=== PATIENT | male | born 1975 | race Caucasian/White ===

== ENCOUNTER 2024-02-13 12:17 | Inpatient (IN) | payer MEDICAID, OTHER ==
[~2024-02-13] VITALS: Ht 180.3 cm; Wt 113.4 kg
[2024-02-13] MEDS ORDERED: GLIP5TAB16 PO (12:34)
[2024-02-13] MEDS ORDERED: EMPA10TA3 PO (12:34)
[2024-02-13] MEDS ORDERED: PALI156D IM (12:34)
[2024-02-13] MEDS ORDERED: METF-1211 PO (12:34)
[2024-02-13] MEDS ORDERED: LISI-894 PO (12:34)
[2024-02-13] MEDS ORDERED: LEVO137T24 PO (12:34)
[2024-02-13 12:40] LABS: COVID AG,FIA SOURCE NASAL SWAB
[2024-02-13 12:55] LABS: AMPHET/METH SCREEN,URINE NEGATIVE (NEGATIVE); BARBITURATE SCREEN, URINE NEGATIVE (NEGATIVE); BENZODIAZEPINES SCREEN,URINE POSITIVE (NEGATIVE); CANNABINOID SCREEN,URINE NEGATIVE (NEGATIVE); COCAINE SCREEN,URINE NEGATIVE (NEGATIVE); METHADONE SCREEN, URINE NEGATIVE (NEGATIVE); OPIATE SCREEN,URINE NEGATIVE (NEGATIVE); PHENCYCLIDINE SCREEN,URINE NEGATIVE (NEGATIVE)
[2024-02-13 12:59] LABS: ALCOHOL, URINE DRUG SCREEN NEGATIVE (NEGATIVE)
[2024-02-13 13:01] LABS: BASOPHILS % (AUTO) 0.7 % (0.0-2.0); EOSINOPHILS % (AUTO) 0.4 % (1.0-6.0); HEMATOCRIT 41.1 % (41-53); HEMOGLOBIN 14.3 g/dL (13.5-17.5); LYMPHOCYTES # (AUTO) 1.6 K/uL (1.0-4.8); LYMPHOCYTES % (AUTO) 14.9 % (22.0-44.0); MEAN CORPUSCULAR HEMOGLOBIN 31.5 pg (26.0-34.0); MEAN CORPUSCULAR HGB CONC 34.9 G/dL (31.0-37.0); MEAN CORPUSCULAR VOLUME 90 fL (80-100); MONOCYTES # (AUTO) 0.7 K/uL (0.1-1.0); MONOCYTES % (AUTO) 6.1 % (2.0-9.0); NEUTROPHILS # (AUTO) 8.6 K/uL (1.8-7.7); NEUTROPHILS % (AUTO) 77.9 % (40.0-70.0); PLATELET COUNT (AUTO) 390 K/uL (150-450); RED BLOOD CELL COUNT(AUTO) 4.54 MIL/uL (4.50-5.90); RED CELL DISTRIBUTION WIDTH 15.1 % (11.5-14.5)
[2024-02-13 13:04] LABS: ANION GAP 12 mmol/L (8-16); CALCIUM, TOTAL 9.3 mg/dL (8.8-10.5); CARBON DIOXIDE 25 mmol/L (22-29); CHLORIDE 99 mmol/L (98-107); CREATININE 0.89 mg/dL (0.60-1.30); GLOMERULAR FILTR. RATE CALC > 60 mL/min (>60); GLUCOSE,RANDOM 125 mg/dL (70-110); SODIUM SERUM 136 mmol/L (136-145); UREA NITROGEN, BLOOD 10 mg/dL (7-18)
[2024-02-13 13:12] LABS: SARS-COV2 (COVID) ANTIGEN,FIA Negative (Negative)
[2024-02-13] MEDS: HALOPERIDOL 5 MG TABLET PO ONE (13:13)
[2024-02-13] MEDS: LORazepam 2 MG TABLET PO ONE (13:13)
[2024-02-13] MEDS: DiphenhydrAMINE HCL 25 MG CAPSULE PO ONE (13:14)
[2024-02-13 13:24] LABS: ALCOHOL, BLOOD (SERUM) < 3 mg/dL (0-10)
[2024-02-13] MEDS ORDERED: MAG HYDROX/ALUMINUM HYD/SIMETH ES 30 ML SUSPENSION UDCUP PO PRN (15:15)
[2024-02-13] MEDS ORDERED: MAGNESIUM HYDROXIDE SUSPENSION 30 ML UDCUP PO PRN (15:15)
[2024-02-13 16:14] VITALS: O2SAT 97
[2024-02-13 17:23] VITALS: BP 134/82; PULSE 75; RESP 18; TEMP 97.5; O2SAT 98
[2024-02-13] MEDS: LORazepam 2 MG TABLET PO PRN (18:41)
[2024-02-13] MEDS: HALOPERIDOL 5 MG TABLET PO PRN (18:42)
[2024-02-13] MEDS ORDERED: PNEUMOCOCCAL VACCINE POLYVALENT 0.5 ML SYRINGE [PPSV23] IM. ONE (18:45)
[2024-02-13] MEDS: ZOLPIDEM TARTRATE 10 MG TABLET PO PRN (20:20)
[2024-02-13] MEDS ORDERED: GLUCAGON,HUMAN RECOMBINANT 1 MG VIAL IM PRN (20:30)
[2024-02-13 20:45] VITALS: BP 134/82; PULSE 96; RESP 20; TEMP 97.8; O2SAT 99
[2024-02-13 21:06] LABS: GLUCOMETER DEV NAME(LOC) BV2S.; GLUCOSE,POINT OF CARE 114 MG/DL (70-110)
[2024-02-14] MEDS: MetFORMIN HCL 500 MG TABLET PO SCH (06:47)
[2024-02-14] MEDS: LEVOTHYROXINE SODIUM 137 MCG TABLET PO SCH (06:47)
[2024-02-14 07:16] LABS: GLUCOMETER DEV NAME(LOC) BV2S.; GLUCOSE,POINT OF CARE 127 MG/DL (70-110)
[2024-02-14 08:20] VITALS: BP 109/68; PULSE 91; RESP 17; TEMP 96.8; O2SAT 97
[2024-02-14] MEDS: LISINOPRIL 20 MG TABLET PO SCH (10:38)
[2024-02-14 12:21] LABS: GLUCOMETER DEV NAME(LOC) BV2S.; GLUCOSE,POINT OF CARE 140 MG/DL (70-110)
[2024-02-14] MEDS: ARIPiprazole 10 MG TABLET PO SCH (12:53)
[2024-02-14 18:01] LABS: GLUCOMETER DEV NAME(LOC) BV2S.; GLUCOSE,POINT OF CARE 150 MG/DL (70-110)
[2024-02-14 18:01] LABS: GLUCOMETER DEV NAME(LOC) BV2S.; GLUCOSE,POINT OF CARE 136 MG/DL (70-110)
[2024-02-14] MEDS: INSULIN LISPRO 100 UNITS/ML SQ PRN (21:13)
[2024-02-14 21:30] VITALS: BP 105/66; PULSE 76; RESP 17; TEMP 97.5; O2SAT 98
[2024-02-15 06:31] LABS: GLUCOMETER DEV NAME(LOC) BV2S.; GLUCOSE,POINT OF CARE 186 MG/DL (70-110)
[2024-02-15 06:31] LABS: GLUCOMETER DEV NAME(LOC) BV2S.; GLUCOSE,POINT OF CARE 125 MG/DL (70-110)
[2024-02-15 08:17] VITALS: BP 107/66; PULSE 91; RESP 18; TEMP 96.6; O2SAT 97
[2024-02-15] MEDS ORDERED: HydrOXYzine PAMOATE 50 MG CAPSULE PO PRN (11:00)
[2024-02-15 12:35] LABS: GLUCOMETER DEV NAME(LOC) BV2S.; GLUCOSE,POINT OF CARE 120 MG/DL (70-110)
[2024-02-15] MEDS: BENZTROPINE MESYLATE 1 MG TABLET PO SCH (16:49)
[2024-02-15 18:25] LABS: GLUCOMETER DEV NAME(LOC) BV2S.; GLUCOSE,POINT OF CARE 120 MG/DL (70-110)
[2024-02-15 21:26] LABS: GLUCOMETER DEV NAME(LOC) BV2S.; GLUCOSE,POINT OF CARE 109 MG/DL (70-110)
[2024-02-15 21:59] VITALS: BP 102/55; PULSE 75; RESP 16; TEMP 96; O2SAT 98
[2024-02-16] MEDS: FLUoxetine HCL 20 MG CAPSULE PO SCH (08:48)
[2024-02-16 08:56] VITALS: BP 128/75; PULSE 94; RESP 17; TEMP 98; O2SAT 97
[2024-02-16 10:36] LABS: GLUCOMETER DEV NAME(LOC) BV2S.; GLUCOSE,POINT OF CARE 117 MG/DL (70-110)
[2024-02-16 11:55] LABS: GLUCOMETER DEV NAME(LOC) BV2S.; GLUCOSE,POINT OF CARE 113 MG/DL (70-110)
[2024-02-16 17:45] VITALS: RESP 18; O2SAT 97
[2024-02-16] MEDS: ACETAMINOPHEN 325 MG TABLET PO PRN (17:45)
[2024-02-16 18:45] VITALS: RESP 17; O2SAT 97
[2024-02-16 20:32] VITALS: BP 109/69; PULSE 94; RESP 16; TEMP 96.2; O2SAT 97
[2024-02-16 21:31] LABS: GLUCOMETER DEV NAME(LOC) BV2S.; GLUCOSE,POINT OF CARE 112 MG/DL (70-110)
[2024-02-17] VITALS (9 sets, daily range): BP systolic 107–144; BP diastolic 65–82; PULSE 78–107; RESP 16–18; TEMP 97–98; O2SAT 96–99
[2024-02-17 06:51] LABS: GLUCOMETER DEV NAME(LOC) BV2S.; GLUCOSE,POINT OF CARE 138 MG/DL (70-110)
[2024-02-17 13:25] LABS: GLUCOMETER DEV NAME(LOC) BV2S.; GLUCOSE,POINT OF CARE 120 MG/DL (70-110)
[2024-02-17 17:25] LABS: GLUCOMETER DEV NAME(LOC) BV2S.; GLUCOSE,POINT OF CARE 127 MG/DL (70-110)
[2024-02-17 21:21] LABS: GLUCOMETER DEV NAME(LOC) BV2S.; GLUCOSE,POINT OF CARE 113 MG/DL (70-110)
[2024-02-18 06:26] LABS: GLUCOMETER DEV NAME(LOC) BV2S.; GLUCOSE,POINT OF CARE 119 MG/DL (70-110)
[2024-02-18 08:08] VITALS: BP 138/94; PULSE 66; RESP 18; TEMP 97.7; O2SAT 100
[2024-02-18 11:50] LABS: GLUCOMETER DEV NAME(LOC) BV2S.; GLUCOSE,POINT OF CARE 132 MG/DL (70-110)
[2024-02-18] MEDS: LOPERAMIDE HCL 2 MG CAPSULE PO PRN (14:30)
[2024-02-18 17:16] LABS: GLUCOMETER DEV NAME(LOC) BV2S.; GLUCOSE,POINT OF CARE 107 MG/DL (70-110)
[2024-02-19 01:56] LABS: GLUCOMETER DEV NAME(LOC) BV2S.; GLUCOSE,POINT OF CARE 132 MG/DL (70-110)
[2024-02-19 06:51] LABS: GLUCOMETER DEV NAME(LOC) BV2S.; GLUCOSE,POINT OF CARE 139 MG/DL (70-110)
[2024-02-19 08:12] VITALS: BP 129/81; PULSE 100; RESP 17; TEMP 96.8; O2SAT 99
[2024-03-07] MEDS ORDERED: PALIPERIDONE PALMITATE 234 MG/1.5 ML SYRINGE IM SCH (09:00)
== END 2024-02-19 15:00 | disposition short-term general hospital (02) | DRG 750 ==
LOC: EMS 12:17 → B2S 15:09
PROVIDERS: ADMIT Psychiatry & Neurology Psychiatry; ATTEND Psychiatry & Neurology Psychiatry
PROC: GZHZZZZ Group Psychotherapy (ICD-10-PCS; principal; 2024-02-14)
PROC: GZ52ZZZ Individual Psychotherapy, Cognitive (ICD-10-PCS; 2024-02-14)
DX: F25.1 Schizoaffective disorder, depressive type (principal); E11.9 Type 2 diabetes mellitus without complications; R45.851 Suicidal ideations; E03.9 Hypothyroidism, unspecified; Z20.822 Contact with and (suspected) exposure to COVID-19; I10 Essential (primary) hypertension; F41.9 Anxiety disorder, unspecified
CPT/HCPCS: 72100; 80048; 80307; 82962; 85025; 93005; 99285; G0480

== ENCOUNTER 2024-02-19 11:09 | Inpatient (IN) | payer MEDICAID, OTHER ==
[~2024-02-19] VITALS: Ht 180.3 cm; Wt 116.4 kg
[~2024-02-19 11:09] MED LIST: EMPA10TA3 PO; GLIP5TAB16 PO; LEVO137T24 PO; LISI-894 PO; METF-1211 PO; PALI156D IM
[2024-02-19 11:57] LABS: BASOPHILS % (AUTO) 0.7 % (0.0-2.0); EOSINOPHILS % (AUTO) 1.5 % (1.0-6.0); HEMATOCRIT 42.5 % (41-53); HEMOGLOBIN 14.6 g/dL (13.5-17.5); LYMPHOCYTES # (AUTO) 1.6 K/uL (1.0-4.8); LYMPHOCYTES % (AUTO) 13.4 % (22.0-44.0); MEAN CORPUSCULAR HEMOGLOBIN 31.3 pg (26.0-34.0); MEAN CORPUSCULAR HGB CONC 34.2 G/dL (31.0-37.0); MEAN CORPUSCULAR VOLUME 92 fL (80-100); MONOCYTES # (AUTO) 0.9 K/uL (0.1-1.0); MONOCYTES % (AUTO) 7.7 % (2.0-9.0); NEUTROPHILS # (AUTO) 9.2 K/uL (1.8-7.7); NEUTROPHILS % (AUTO) 76.7 % (40.0-70.0); PLATELET COUNT (AUTO) 337 K/uL (150-450); RED BLOOD CELL COUNT(AUTO) 4.65 MIL/uL (4.50-5.90); RED CELL DISTRIBUTION WIDTH 14.4 % (11.5-14.5)
[2024-02-19 12:10] LABS: ANION GAP 8 mmol/L (8-16); CALCIUM, TOTAL 9.5 mg/dL (8.8-10.5); CARBON DIOXIDE 26 mmol/L (22-29); CHLORIDE 99 mmol/L (98-107); CREATININE 0.78 mg/dL (0.60-1.30); GLOMERULAR FILTR. RATE CALC > 60 mL/min (>60); GLUCOSE,RANDOM 152 mg/dL (70-110); SODIUM SERUM 133 mmol/L (136-145); UREA NITROGEN, BLOOD 13 mg/dL (7-18)
[2024-02-19] MEDS ORDERED: HYDROCODONE/ACETAMINOPHEN 5-325 MG TABLET PO PRN (15:30)
[2024-02-19] MEDS ORDERED: BISACODYL 10 MG RECTAL RECTAL SUPPOSITORY PR PRN (15:30)
[2024-02-19] MEDS ORDERED: MAGNESIUM HYDROXIDE SUSPENSION 30 ML UDCUP PO PRN (15:30)
[2024-02-19] MEDS ORDERED: ZOLPIDEM TARTRATE 5 MG TABLET PO PRN (15:30)
[2024-02-19] MEDS ORDERED: ACETAMINOPHEN 325 MG TABLET PO PRN (15:30)
[2024-02-19] MEDS ORDERED: SODIUM CHLORIDE 0.9% 1,000 ML IV ONE (15:30)
[2024-02-19] MEDS ORDERED: ONDANSETRON HCL 4 MG/2 ML VIAL IVP PRN (15:30)
[2024-02-19] MEDS ORDERED: MORPHINE SULFATE 2 MG/ML SYRINGE IVP PRN (15:30)
[2024-02-19] MEDS: HEPARIN SODIUM,PORCINE 5,000 UNITS/ML VIAL SQ SCH (16:00)
[2024-02-19] MEDS: SODIUM CHLORIDE 0.9% 1,000 ML IV ONE (16:04)
[2024-02-19] MEDS: MetroNIDAZOLE 500 MG TABLET PO SCH (16:08)
[2024-02-19 18:11] VITALS: BP 119/71; PULSE 78; RESP 20; TEMP 98.6; O2SAT 95
[2024-02-19] MEDS: DOCUSATE SODIUM 100 MG CAPSULE PO SCH (20:39)
[2024-02-19 20:43] VITALS: BP 114/62; PULSE 66; RESP 18; TEMP 98.1; O2SAT 94
[2024-02-20 03:41] LABS: C.DIFF GDH ANTIGEN, Stool Negative (Negative); C.DIFF TOXINS A&B, Stool Negative (Negative)
[2024-02-20 05:23] VITALS: BP 110/68; PULSE 70; RESP 18; TEMP 97.7; O2SAT 95
[2024-02-20] MEDS: LEVOTHYROXINE SODIUM 137 MCG TABLET PO SCH (06:24)
[2024-02-20 07:35] LABS: GLUCOMETER DEV NAME(LOC) 6N.2B; GLUCOSE,POINT OF CARE 118 MG/DL (70-110)
[2024-02-20] MEDS: PANTOPRAZOLE SODIUM 40 MG DR TABLET PO SCH (08:03)
[2024-02-20] MEDS: LISINOPRIL 20 MG TABLET PO SCH (08:03)
[2024-02-20 08:06] LABS: BASOPHILS % (AUTO) 0.5 % (0.0-2.0); EOSINOPHILS % (AUTO) 2.9 % (1.0-6.0); HEMATOCRIT 41.6 % (41-53); HEMOGLOBIN 14.5 g/dL (13.5-17.5); LYMPHOCYTES # (AUTO) 1.7 K/uL (1.0-4.8); LYMPHOCYTES % (AUTO) 23.4 % (22.0-44.0); MEAN CORPUSCULAR VOLUME 92 fL (80-100); MONOCYTES # (AUTO) 0.5 K/uL (0.1-1.0); MONOCYTES % (AUTO) 7.3 % (2.0-9.0); NEUTROPHILS # (AUTO) 4.7 K/uL (1.8-7.7); NEUTROPHILS % (AUTO) 65.9 % (40.0-70.0); PLATELET COUNT (AUTO) 305 K/uL (150-450); RED BLOOD CELL COUNT(AUTO) 4.54 MIL/uL (4.50-5.90); RED CELL DISTRIBUTION WIDTH 14.7 % (11.5-14.5); WHITE BLOOD COUNT (AUTO) 7.1 K/uL (4.5-11.0)
[2024-02-20 08:13] LABS: ANION GAP 5 mmol/L (8-16); CALCIUM, TOTAL 9.1 mg/dL (8.8-10.5); CARBON DIOXIDE 29 mmol/L (22-29); CHLORIDE 101 mmol/L (98-107); CREATININE 0.76 mg/dL (0.60-1.30); GLOMERULAR FILTR. RATE CALC > 60 mL/min (>60); GLUCOSE,RANDOM 122 mg/dL (70-110); POTASSIUM 4.1 mmol/L (3.5-5.1); SODIUM SERUM 135 mmol/L (136-145); UREA NITROGEN, BLOOD 9 mg/dL (7-18)
[2024-02-20 16:04] VITALS: BP 129/87; PULSE 80; RESP 17; TEMP 98.7; O2SAT 98
[2024-02-20 20:47] VITALS: BP 110/67; PULSE 71; RESP 18; TEMP 98.2; O2SAT 93
[2024-02-21 04:58] VITALS: BP 119/73; PULSE 70; RESP 18; TEMP 97.7; O2SAT 96
[2024-02-21 08:15] LABS: BASOPHILS % (AUTO) 0.5 % (0.0-2.0); EOSINOPHILS % (AUTO) 2.4 % (1.0-6.0); HEMATOCRIT 39.1 % (41-53); HEMOGLOBIN 13.8 g/dL (13.5-17.5); LYMPHOCYTES # (AUTO) 1.6 K/uL (1.0-4.8); LYMPHOCYTES % (AUTO) 24.1 % (22.0-44.0); MEAN CORPUSCULAR HEMOGLOBIN 31.9 pg (26.0-34.0); MEAN CORPUSCULAR HGB CONC 35.3 G/dL (31.0-37.0); MEAN CORPUSCULAR VOLUME 91 fL (80-100); MONOCYTES # (AUTO) 0.5 K/uL (0.1-1.0); MONOCYTES % (AUTO) 7.3 % (2.0-9.0); NEUTROPHILS # (AUTO) 4.4 K/uL (1.8-7.7); NEUTROPHILS % (AUTO) 65.7 % (40.0-70.0); PLATELET COUNT (AUTO) 275 K/uL (150-450); RED BLOOD CELL COUNT(AUTO) 4.32 MIL/uL (4.50-5.90); RED CELL DISTRIBUTION WIDTH 14.4 % (11.5-14.5); WHITE BLOOD COUNT (AUTO) 6.8 K/uL (4.5-11.0)
[2024-02-21 08:17] LABS: ANION GAP 7 mmol/L (8-16); CALCIUM, TOTAL 8.4 mg/dL (8.8-10.5); CARBON DIOXIDE 29 mmol/L (22-29); CHLORIDE 102 mmol/L (98-107); GLOMERULAR FILTR. RATE CALC > 60 mL/min (>60); GLUCOSE,RANDOM 123 mg/dL (70-110); POTASSIUM 4.1 mmol/L (3.5-5.1); SODIUM SERUM 138 mmol/L (136-145); UREA NITROGEN, BLOOD 10 mg/dL (7-18)
[2024-02-21] MEDS: ARIPiprazole 10 MG TABLET PO SCH (08:33)
[2024-02-21] MEDS: FLUoxetine HCL 20 MG CAPSULE PO SCH (08:33)
[2024-02-21 09:03] VITALS: BP 121/74; PULSE 81; RESP 18; TEMP 98.1; O2SAT 98
[2024-02-21] MEDS ORDERED: METR500 PO (14:50)
[2024-02-21] MEDS ORDERED: FLUO-418 PO (14:50)
[2024-02-21 15:38] VITALS: BP 101/67; PULSE 78; RESP 18; TEMP 97.7; O2SAT 97
== END 2024-02-21 17:07 | disposition home or self-care (01) | DRG 254 ==
LOC: EMS 11:09 → EDH 15:36 → 4E 17:55
PROVIDERS: ADMIT Internal Medicine; ATTEND Internal Medicine
DX: E73.9 Lactose intolerance, unspecified (principal); F25.1 Schizoaffective disorder, depressive type; E86.0 Dehydration; R10.9 Unspecified abdominal pain; E11.9 Type 2 diabetes mellitus without complications; I10 Essential (primary) hypertension; E78.5 Hyperlipidemia, unspecified; E03.9 Hypothyroidism, unspecified; F41.9 Anxiety disorder, unspecified; Z79.84 Long term (current) use of oral hypoglycemic drugs; Z79.899 Other long term (current) drug therapy
CPT/HCPCS: 74176; 80048; 82962; 85025; 87045; 87206; 87324; 87449; 99285; G0378; J1644

== ENCOUNTER 2024-04-10 11:54 | Emergency (ER) | payer MEDICAID, OTHER ==
[~2024-04-10] VITALS: Ht 180.3 cm; Wt 116.4 kg
[~2024-04-10 11:54] MED LIST changes: +FLUO-418 PO; +METR500 PO
[2024-04-10 12:59] VITALS: BP 100/62; PULSE 84; RESP 18; TEMP 97.8; O2SAT 95
[2024-04-12] MEDS ORDERED: INSNPH SQ (13:11)
[2024-04-12] MEDS ORDERED: BENZ-247 PO (13:11)
[2024-04-12] MEDS ORDERED: ALLO100T PO (13:11)
[2024-04-12] MEDS ORDERED: INSREG SQ (13:11)
[2024-04-12] MEDS ORDERED: ATOR40TA71 PO (13:11)
[2024-04-12] MEDS ORDERED: PALI234D IM (13:11)
[2024-04-12] MEDS ORDERED: PIOG15TA66 PO (13:11)
[2024-04-12] MEDS ORDERED: BUSP10TA23 PO (13:11)
[2024-04-12] MEDS ORDERED: TRAZ150T79 PO (13:11)
[2024-04-12] MEDS ORDERED: EMPA25TA3 PO (13:11)
[2024-04-12] MEDS ORDERED: GLIP-383 PO (13:11)
[2024-04-12] MEDS ORDERED: HYDR-4584 PO (13:11)
== END 2024-04-10 17:30 | disposition home or self-care (01) ==
LOC: EMS 11:59
DX: K59.00 Constipation, unspecified (principal); F20.9 Schizophrenia, unspecified; E11.9 Type 2 diabetes mellitus without complications; E03.9 Hypothyroidism, unspecified; I10 Essential (primary) hypertension; Z90.49 Acquired absence of other specified parts of digestive tract; Z79.84 Long term (current) use of oral hypoglycemic drugs; Z79.899 Other long term (current) drug therapy
CPT/HCPCS: 74018; 99285

== ENCOUNTER 2024-08-13 05:20 | Inpatient (IN) | payer MEDICAID, OTHER ==
[~2024-08-13] VITALS: Ht 180.3 cm; Wt 108.0 kg
[~2024-08-13 05:20] MED LIST changes: -EMPA10TA3 PO; -GLIP5TAB16 PO; +HYDR50CA7 PO; -LEVO137T24 PO; +LEVO25TA9 PO; -LISI-894 PO; -METR500 PO; +OLAN10TA74 PO; -PALI156D IM; +PROP10TA73 PO; +TRAZ-257 PO
[2024-08-13 07:04] LABS: COVID AG,FIA SOURCE NPH
[2024-08-13] MEDS: DiphenhydrAMINE HCL 50 MG/ML VIAL IM ONE (07:09)
[2024-08-13] MEDS: haloperidoL LACTATE 5 MG/ML VIAL IM ONE (07:09)
[2024-08-13] MEDS: LORazepam 2 MG/ML VIAL IM ONE (07:09)
[2024-08-13 07:15] LABS: GLUCOMETER DEV NAME(LOC) ERT.7; GLUCOSE,POINT OF CARE 135 MG/DL (70-110)
[2024-08-13 07:33] LABS: SARS-COV2 (COVID) ANTIGEN,FIA Negative (Negative)
[2024-08-13 07:54] LABS: BASOPHILS % (AUTO) 0.8 % (0.0-2.0); EOSINOPHILS % (AUTO) 0.3 % (1.0-6.0); HEMATOCRIT 41.4 % (41-53); HEMOGLOBIN 14.3 g/dL (13.5-17.5); LYMPHOCYTES # (AUTO) 1.7 K/uL (1.0-4.8); LYMPHOCYTES % (AUTO) 13.6 % (22.0-44.0); MEAN CORPUSCULAR HGB CONC 34.6 G/dL (31.0-37.0); MEAN CORPUSCULAR VOLUME 90 fL (80-100); MONOCYTES # (AUTO) 0.6 K/uL (0.1-1.0); NEUTROPHILS # (AUTO) 9.9 K/uL (1.8-7.7); NEUTROPHILS % (AUTO) 80.3 % (40.0-70.0); PLATELET COUNT (AUTO) 353 K/uL (150-450); RED BLOOD CELL COUNT(AUTO) 4.62 MIL/uL (4.50-5.90); RED CELL DISTRIBUTION WIDTH 14.3 % (11.5-14.5); WHITE BLOOD COUNT (AUTO) 12.3 K/uL (4.5-11.0)
[2024-08-13 07:56] LABS: ANION GAP 12 mmol/L (8-16); CARBON DIOXIDE 24 mmol/L (22-29); CHLORIDE 102 mmol/L (98-107); CREATININE 0.91 mg/dL (0.60-1.30); GLOMERULAR FILTR. RATE CALC > 60 mL/min (>60); GLUCOSE,RANDOM 132 mg/dL (70-110); POTASSIUM 3.7 mmol/L (3.5-5.1); SODIUM SERUM 138 mmol/L (136-145); UREA NITROGEN, BLOOD 18 mg/dL (7-18)
[2024-08-13 08:07] LABS: ALCOHOL, BLOOD (SERUM) < 3 mg/dL (0-10)
[2024-08-13 08:13] LABS: THYROID STIMULATING HORMONE 20.05 uIU/mL (0.36-3.74)
[2024-08-13] MEDS ORDERED: GLIP-383 PO (11:02)
[2024-08-13] MEDS ORDERED: LATA2.5D14 OU (11:02)
[2024-08-13] MEDS ORDERED: INSREG SQ (11:02)
[2024-08-13] MEDS ORDERED: INSNPH SQ (11:02)
[2024-08-13 13:18] LABS: APPEARANCE,URINE CLEAR (CLEAR); BILIRUBIN,URINE NEGATIVE (NEGATIVE); COLOR,URINE LIGHT YELLOW (YELLOW); GLUCOSE, URINE (UA) >=1000 mg/dL (NEGATIVE); KETONES,URINE NEGATIVE (NEGATIVE); LEUKOCYTE ESTERASE ,URINE NEGATIVE (NEGATIVE); NITRATE,URINE NEGATIVE (NEGATIVE); OCCULT BLOOD,URINE NEGATIVE (NEGATIVE); PH,URINE 6.5 (5.0-8.0); PH,URINE DRUG SCREEN 6.5 (5.0-8.0); PROTEIN,URINE TRACE mg/dL (NEGATIVE); SPECIFIC GRAVITIY, URINE 1.039 (1.003-1.030); UROBILINOGEN,URINE <=1.0 mg/dL (<=1.0)
[2024-08-13] MEDS: haloperidoL 5 MG TABLET PO PRN (13:24)
[2024-08-13] MEDS: LEVOTHYROXINE SODIUM 50 MCG TABLET PO ONE (13:24)
[2024-08-13] MEDS: LORazepam 2 MG TABLET PO PRN (13:24)
[2024-08-13 13:29] LABS: BACTERIA,URINE None Seen /HPF (None Seen); RBC,URINE None Seen /HPF (0-2); WBC,URINE None Seen /HPF (0-5)
[2024-08-13 13:47] LABS: ALCOHOL, URINE DRUG SCREEN NEGATIVE (NEGATIVE); AMPHET/METH SCREEN,URINE NEGATIVE (NEGATIVE); BARBITURATE SCREEN, URINE NEGATIVE (NEGATIVE); BENZODIAZEPINES SCREEN,URINE POSITIVE (NEGATIVE); CANNABINOID SCREEN,URINE POSITIVE (NEGATIVE); COCAINE SCREEN,URINE NEGATIVE (NEGATIVE); METHADONE SCREEN, URINE NEGATIVE (NEGATIVE); OPIATE SCREEN,URINE NEGATIVE (NEGATIVE); PHENCYCLIDINE SCREEN,URINE NEGATIVE (NEGATIVE)
[2024-08-13 15:44] VITALS: O2SAT 98
[2024-08-13 18:53] VITALS: BP 139/85; PULSE 79; RESP 16; TEMP 97.8; O2SAT 97
[2024-08-13 20:39] VITALS: RESP 16
[2024-08-13] MEDS: OLANZapine 10 MG TABLET PO SCH (21:19)
[2024-08-14] MEDS ORDERED: IBUPROFEN 600 MG TABLET PO PRN (07:00)
[2024-08-14] MEDS ORDERED: PETROLATUM,WHITE 28 GM JELLY TP PRN (07:00)
[2024-08-14] MEDS ORDERED: GLUCAGON,HUMAN RECOMBINANT 1 MG VIAL IM PRN (07:00)
[2024-08-14] MEDS ORDERED: OMEPRAZOLE 20 MG CAPSULE PO PRN (07:00)
[2024-08-14] MEDS ORDERED: ACETAMINOPHEN 325 MG TABLET PO PRN (07:00)
[2024-08-14] MEDS ORDERED: CloNIDine HCL 0.1 MG TABLET PO PRN (07:00)
[2024-08-14] MEDS ORDERED: BACITRACIN 28 GM OINTMENT TP PRN (07:00)
[2024-08-14] MEDS ORDERED: DOCUSATE SODIUM 100 MG CAPSULE PO PRN (07:00)
[2024-08-14] MEDS ORDERED: MAG HYDROX/ALUMINUM HYD/SIMETH ES 30 ML SUSPENSION UDCUP PO PRN (07:00)
[2024-08-14] MEDS ORDERED: ONDANSETRON 4 MG TABLET PO PRN (07:00)
[2024-08-14] MEDS ORDERED: LOPERAMIDE HCL 2 MG CAPSULE PO PRN (07:00)
[2024-08-14] MEDS ORDERED: ALBUTEROL SULFATE HFA 90 MCG/PUFF 8 GM INHALER IH PRN (07:00)
[2024-08-14] MEDS ORDERED: MAGNESIUM HYDROXIDE SUSPENSION 30 ML UDCUP PO PRN (07:00)
[2024-08-14] MEDS: LEVOTHYROXINE SODIUM 25 MCG TABLET PO SCH (07:08)
[2024-08-14] MEDS: MetFORMIN HCL 500 MG TABLET PO SCH (07:08)
[2024-08-14] MEDS: PROPRANOLOL HCL 10 MG TABLET PO SCH (08:36)
[2024-08-14 09:12] LABS: HEMOGLOBIN A1C 6.2 % (3.8-5.6)
[2024-08-14 11:03] VITALS: BP 151/97; PULSE 93; RESP 18; TEMP 97.7; O2SAT 99
[2024-08-14 16:07] VITALS: BP 144/87; PULSE 86; RESP 18; TEMP 97.6
[2024-08-14] MEDS: GlipiZIDE ER 2.5 MG ER TABLET PO SCH (16:08)
[2024-08-14 17:26] LABS: GLUCOMETER DEV NAME(LOC) BV3S.2; GLUCOSE,POINT OF CARE 124 MG/DL (70-110)
[2024-08-14 17:26] LABS: GLUCOMETER DEV NAME(LOC) BV3S.2; GLUCOSE,POINT OF CARE 110 MG/DL (70-110)
[2024-08-14 20:17] VITALS: BP 137/96; PULSE 78; RESP 18; TEMP 97.9; O2SAT 98
[2024-08-14 20:35] LABS: GLUCOMETER DEV NAME(LOC) BV3S.2; GLUCOSE,POINT OF CARE 151 MG/DL (70-110)
[2024-08-14] MEDS: LATANOPROST 0.005% 2.5 ML OPHTHALMIC SOLUTION OU SCH (21:01)
[2024-08-14] MEDS: INSULIN LISPRO 100 UNITS/ML SQ PRN (21:31)
[2024-08-15 04:06] LABS: HEPATITIS C AB (EIA) Non Reactive (Non Reactive)
[2024-08-15 06:55] LABS: GLUCOMETER DEV NAME(LOC) BV3S.2; GLUCOSE,POINT OF CARE 96 MG/DL (70-110)
[2024-08-15 08:30] VITALS: BP 125/99; PULSE 100; RESP 16; TEMP 97; O2SAT 98
[2024-08-15 12:56] LABS: GLUCOMETER DEV NAME(LOC) BV3S.2; GLUCOSE,POINT OF CARE 79 MG/DL (70-110)
[2024-08-15 17:31] LABS: GLUCOMETER DEV NAME(LOC) BV3S.2; GLUCOSE,POINT OF CARE 145 MG/DL (70-110)
[2024-08-15 20:37] VITALS: BP 123/79; PULSE 66; RESP 16; TEMP 97.7; O2SAT 98
[2024-08-15 22:16] LABS: GLUCOMETER DEV NAME(LOC) BV3S.2; GLUCOSE,POINT OF CARE 90 MG/DL (70-110)
[2024-08-16] MEDS: LEVOTHYROXINE SODIUM 50 MCG TABLET PO SCH (06:25)
[2024-08-16 06:31] LABS: GLUCOMETER DEV NAME(LOC) BV3S.2; GLUCOSE,POINT OF CARE 105 MG/DL (70-110)
[2024-08-16 08:38] VITALS: BP 128/78; PULSE 78; RESP 18; TEMP 97.8; O2SAT 95
[2024-08-16 11:30] LABS: GLUCOMETER DEV NAME(LOC) BV3S.2; GLUCOSE,POINT OF CARE 147 MG/DL (70-110)
[2024-08-16 16:50] LABS: GLUCOMETER DEV NAME(LOC) BV3S.2; GLUCOSE,POINT OF CARE 155 MG/DL (70-110)
[2024-08-16 20:35] VITALS: BP 130/82; PULSE 74; RESP 16; TEMP 97.7; O2SAT 97
[2024-08-17 00:15] LABS: GLUCOMETER DEV NAME(LOC) BV3S.2; GLUCOSE,POINT OF CARE 104 MG/DL (70-110)
[2024-08-17 06:46] LABS: GLUCOMETER DEV NAME(LOC) BV3S.2; GLUCOSE,POINT OF CARE 95 MG/DL (70-110)
[2024-08-17 09:17] VITALS: BP 133/82; PULSE 83; RESP 18; TEMP 97; O2SAT 96
[2024-08-17 16:00] VITALS: BP 139/78; PULSE 86; RESP 18; TEMP 97.8
[2024-08-17 16:30] LABS: GLUCOMETER DEV NAME(LOC) BV3S.2; GLUCOSE,POINT OF CARE 127 MG/DL (70-110)
[2024-08-17 16:30] LABS: GLUCOMETER DEV NAME(LOC) BV3S.2; GLUCOSE,POINT OF CARE 144 MG/DL (70-110)
[2024-08-17 20:26] LABS: GLUCOMETER DEV NAME(LOC) BV3S.2; GLUCOSE,POINT OF CARE 131 MG/DL (70-110)
[2024-08-17 20:31] VITALS: BP 114/80; PULSE 76; RESP 18; TEMP 97.2; O2SAT 99
[2024-08-18 06:41] LABS: GLUCOMETER DEV NAME(LOC) BV3S.2; GLUCOSE,POINT OF CARE 120 MG/DL (70-110)
[2024-08-18 09:13] VITALS: BP 130/85; PULSE 93; RESP 18; TEMP 97; O2SAT 99
[2024-08-18 12:20] LABS: GLUCOMETER DEV NAME(LOC) BV3S.2; GLUCOSE,POINT OF CARE 97 MG/DL (70-110)
[2024-08-18 17:01] LABS: GLUCOMETER DEV NAME(LOC) BV3S.2; GLUCOSE,POINT OF CARE 163 MG/DL (70-110)
[2024-08-18 21:43] VITALS: BP 125/76; PULSE 72; RESP 18; TEMP 98.6; O2SAT 95
[2024-08-18 23:41] LABS: GLUCOMETER DEV NAME(LOC) BV3S.2; GLUCOSE,POINT OF CARE 129 MG/DL (70-110)
[2024-08-19 06:25] LABS: GLUCOMETER DEV NAME(LOC) BV3S.2; GLUCOSE,POINT OF CARE 112 MG/DL (70-110)
[2024-08-19 11:36] LABS: GLUCOMETER DEV NAME(LOC) BV3S.2; GLUCOSE,POINT OF CARE 117 MG/DL (70-110)
[2024-08-19 11:41] VITALS: BP 116/81; PULSE 99; RESP 16; TEMP 97.5; O2SAT 97
[2024-08-19 16:55] LABS: GLUCOMETER DEV NAME(LOC) BV3S.2; GLUCOSE,POINT OF CARE 192 MG/DL (70-110)
[2024-08-19 20:12] VITALS: BP_SYST 107; BP_SYST 121; BP_DIAS 67; BP_DIAS 80; PULSE 67; PULSE 79; RESP 17; TEMP 98; O2SAT 96
[2024-08-19 21:21] LABS: GLUCOMETER DEV NAME(LOC) BV3S.2; GLUCOSE,POINT OF CARE 122 MG/DL (70-110)
[2024-08-20 06:20] LABS: GLUCOMETER DEV NAME(LOC) BV3S.2; GLUCOSE,POINT OF CARE 122 MG/DL (70-110)
[2024-08-20 09:28] VITALS: BP 126/81; PULSE 89; RESP 17; TEMP 98; O2SAT 98
[2024-08-20 11:55] LABS: GLUCOMETER DEV NAME(LOC) BV3S.2; GLUCOSE,POINT OF CARE 99 MG/DL (70-110)
[2024-08-20] MEDS: BENZOCAINE/MENTHOL [CEPACOL] LOZENGE PO PRN (16:16)
[2024-08-20 16:41] LABS: GLUCOMETER DEV NAME(LOC) BV3S.2; GLUCOSE,POINT OF CARE 103 MG/DL (70-110)
[2024-08-20] MEDS: TraZODone HCL 100 MG TABLET PO SCH (20:24)
[2024-08-20 20:36] LABS: GLUCOMETER DEV NAME(LOC) BV3S.2; GLUCOSE,POINT OF CARE 143 MG/DL (70-110)
[2024-08-21 06:31] LABS: GLUCOMETER DEV NAME(LOC) BV3S.2; GLUCOSE,POINT OF CARE 106 MG/DL (70-110)
[2024-08-21 08:18] VITALS: BP 133/82; PULSE 104; RESP 17; TEMP 97.1; O2SAT 95
[2024-08-21] MEDS ORDERED: LEVO50 PO (08:28)
== END 2024-08-21 12:48 | disposition home or self-care (01) | DRG 750 ==
LOC: EMS 05:21 → B3A 15:10
PROVIDERS: ADMIT Psychiatry & Neurology Psychiatry; ATTEND Psychiatry & Neurology Psychiatry
PROC: GZ52ZZZ Individual Psychotherapy, Cognitive (ICD-10-PCS; principal; 2024-08-14)
DX: F25.1 Schizoaffective disorder, depressive type (principal); E11.9 Type 2 diabetes mellitus without complications; R45.851 Suicidal ideations; E03.9 Hypothyroidism, unspecified; K59.00 Constipation, unspecified; I10 Essential (primary) hypertension; Z20.822 Contact with and (suspected) exposure to COVID-19; E78.5 Hyperlipidemia, unspecified; G47.00 Insomnia, unspecified; K21.9 Gastro-esophageal reflux disease without esophagitis; F41.9 Anxiety disorder, unspecified; Z78.1 Physical restraint status; F12.10 Cannabis abuse, uncomplicated
CPT/HCPCS: 80048; 80061; 80307; 81001; 82962; 83036; 84443; 85025; 86803; 87081; 87340; 96372; 99285; G0480; J1200; J1630; J2060; 36415-L1; 36415-TC; Z7502; Z7610